=== PATIENT | male | born 1970 | race Caucasian/White ===

== ENCOUNTER 2017-04-09 09:07 | Emergency (ER) | payer MEDICAID ==
[~2017-04-09 09:07] MED LIST: LOSA100T14; MOTRIN; SILVER SULFADIAZINE; [UNRECOGNIZED DRUG - OTHER]
[2017-04-09] MEDS ORDERED: LISI-604 PO (09:44)
[2017-04-09] MEDS ORDERED: IPRATROPIUM BROMIDE (0.02%) 0.5MG/2.5ML NEB HHN STA (10:47)
[2017-04-09] MEDS ORDERED: ALBUTEROL (0.083%) 2.5MG/3ML NEB HHN STA (10:47)
[2017-04-09] MEDS ORDERED: PREDNISONE 20MG TABLET PO STA (10:47)
[2017-04-09 11:30] VITALS: BP 152/88
== END 2017-04-09 13:00 | disposition home or self-care (01) ==
LOC: ER 09:07
DX: J45.901 Unspecified asthma with (acute) exacerbation (principal); I10 Essential (primary) hypertension; E11.9 Type 2 diabetes mellitus without complications; Z88.0 Allergy status to penicillin; Z88.2 Allergy status to sulfonamides; Z88.3 Allergy status to other anti-infective agents
CPT/HCPCS: 94640; 99283; J7512; J7611

== ENCOUNTER 2017-09-11 19:29 | Emergency (ER) | payer MEDICAID ==
[~2017-09-11] VITALS: Ht 167.6 cm; Wt 101.3 kg
[~2017-09-11 19:29] MED LIST changes: +LISI-604 PO; -LOSA100T14
[2017-09-11 20:09] VITALS: BP 167/96
[2017-09-11] MEDS ORDERED: CHOL20004 PO (20:12)
[2017-09-11] MEDS ORDERED: METF500T4 PO (20:12)
== END 2017-09-11 23:19 | disposition left against medical advice (07) ==
LOC: ER 21:43
DX: Z53.21 Procedure and treatment not carried out due to patient leaving prior to being seen by health care provider (principal)